=== PATIENT | female | born 1960 | race Caucasian/White ===

== ENCOUNTER 2021-12-21 10:45 | Outpatient (CLI) | payer OTHER | END 2021-12-21 10:46 | disposition home or self-care (01) | LOC: CSHULT 10:45 | PROVIDERS: ATTEND Urology | DX: Q62.39 Other obstructive defects of renal pelvis and ureter (principal); D17.71 Benign lipomatous neoplasm of kidney; N28.89 Other specified disorders of kidney and ureter | CPT/HCPCS: 76770 ==

== ENCOUNTER 2022-06-22 11:54 | Outpatient (CLI) | payer OTHER | END 2022-06-22 11:55 | disposition home or self-care (01) | LOC: CSHMAMMO 11:54 | PROVIDERS: ATTEND Internal Medicine | DX: Z12.31 Encounter for screening mammogram for malignant neoplasm of breast (principal); Z80.3 Family history of malignant neoplasm of breast; Z91.89 Other specified personal risk factors, not elsewhere classified | CPT/HCPCS: 77063; 77067 ==

== ENCOUNTER 2022-11-22 11:51 | Outpatient (CLI) | payer OTHER | END 2022-11-22 11:52 | disposition home or self-care (01) | LOC: CSHULT 11:51 | PROVIDERS: ATTEND Urology | DX: Q62.39 Other obstructive defects of renal pelvis and ureter (principal); D17.71 Benign lipomatous neoplasm of kidney; N28.9 Disorder of kidney and ureter, unspecified | CPT/HCPCS: 76770 ==

== ENCOUNTER 2023-11-16 13:57 | Outpatient (CLI) | payer MEDICARE | END 2023-11-16 13:58 | disposition home or self-care (01) | LOC: CSHMAMMO 13:57 | PROVIDERS: ATTEND Family Medicine | DX: N63.21 Unspecified lump in the left breast, upper outer quadrant (principal) | CPT/HCPCS: 76642; 77065; G0279 ==

== ENCOUNTER 2023-11-27 12:54 | Outpatient (CLI) | payer MEDICARE | END 2023-11-27 12:55 | disposition home or self-care (01) | LOC: CSHRAD 12:54 | PROVIDERS: ATTEND Urology | DX: Q62.11 Congenital occlusion of ureteropelvic junction (principal); N13.5 Crossing vessel and stricture of ureter without hydronephrosis; R35.0 Frequency of micturition; N39.0 Urinary tract infection, site not specified; N95.2 Postmenopausal atrophic vaginitis | CPT/HCPCS: 76770 ==

== ENCOUNTER → 2023-11-30 | Day surgery (SDC) | payer MEDICARE | LOC: CSHULT 12:32 | PROVIDERS: ATTEND Family Medicine | PROC: 0HB5XZX Excision of Chest Skin, External Approach, Diagnostic (ICD-10-PCS; principal; 2023-11-30) | DX: N60.82 Other benign mammary dysplasias of left breast (principal); N63.20 Unspecified lump in the left breast, unspecified quadrant | CPT/HCPCS: 19083; 88305 ==

== ENCOUNTER 2023-12-25 13:58 | Outpatient (CLI) | payer MEDICARE | END 2023-12-25 13:59 | disposition home or self-care (01) | LOC: CSHMAMMO 13:58 | PROVIDERS: ATTEND Family Medicine | DX: Z13.820 Encounter for screening for osteoporosis (principal); M81.0 Age-related osteoporosis without current pathological fracture; M85.851 Other specified disorders of bone density and structure, right thigh; M85.852 Other specified disorders of bone density and structure, left thigh; Z78.0 Asymptomatic menopausal state | CPT/HCPCS: 77080 ==

== ENCOUNTER 2024-05-21 08:57 | Outpatient (CLI) | payer MEDICARE | END 2024-05-21 08:58 | disposition home or self-care (01) | LOC: CSHULT 08:57 | PROVIDERS: ATTEND Physician Assistant Medical | DX: R79.89 Other specified abnormal findings of blood chemistry (principal) | CPT/HCPCS: 76705 ==

== ENCOUNTER 2025-05-13 10:15 | Outpatient (CLI) | payer MEDICARE | END 2025-05-13 10:16 | disposition home or self-care (01) | LOC: CSHULT 10:15 | PROVIDERS: ATTEND Urology | DX: N13.5 Crossing vessel and stricture of ureter without hydronephrosis (principal) | CPT/HCPCS: 76770 ==